=== PATIENT | male | born 1985 | race Hispanic/Latino ===

== ENCOUNTER 2017-11-11 13:19 | Emergency (ER) | payer SELFPAY ==
--- NOTE | 2017-11-11 13:59 | RAD ---
LEFT ELBOW FOUR VIEWS: HISTORY: A 32-year-old male with a history of left elbow pain following trauma four days ago. FINDINGS: There is evidence for an elbow joint effusion. There appears to be some cortical irregularity of the sublime tubercle region of the ulna, concerning for the possibility of a fracture. IMPRESSION: Evidence for elbow joint effusion with a possible fracture of the sublime tubercle region of the ulna . Given persistent pain and joint effusion after trauma, consideration for additional imaging with M [facility] would be of benefit for further assessment, to evaluate for any additional nonosseous injury. POS: [facility]
[2017-11-11] MEDS ORDERED: Ketorolac Tromethamine 30 MG/ML VIAL ONE (14:42)
== END 2017-11-11 15:13 | disposition home or self-care (01) ==
LOC: ERS 13:19
DX: S52.025A Nondisplaced fracture of olecranon process without intraarticular extension of left ulna, initial encounter for closed fracture (principal); S42.412A Displaced simple supracondylar fracture without intercondylar fracture of left humerus, initial encounter for closed fracture; W22.8XXA Striking against or struck by other objects, initial encounter
CPT/HCPCS: 24530; 24670; 96372; J1885

== ENCOUNTER 2018-08-10 21:29 | Emergency (ER) | payer SELFPAY | END 2018-08-11 00:07 | disposition left against medical advice (07) | LOC: ERS 21:29 | DX: Z53.21 Procedure and treatment not carried out due to patient leaving prior to being seen by health care provider (principal) ==

== ENCOUNTER 2018-08-18 18:38 | Emergency (ER) | payer SELFPAY ==
--- NOTE | 2018-08-18 19:17 | RAD ---
EXAM: Chest one view: HISTORY: Cough for one and a half weeks COMPARISON: None FINDINGS: Heart size: Within normal limits. The lungs: Clear of acute process. No evidence for pneumonia, pleural effusion, acute edema, or pneumothorax, or other significant acute process. IMPRESSION: No significant acute intrathoracic disease.
[2018-08-18] MEDS ORDERED: Lidocaine 1% PF 5 ML VIAL ONE (19:18)
[2018-08-18] MEDS ORDERED: cefTRIAXone\\ROCEPHIN 1 GM VIAL ONE (19:18)
[2018-08-18] MEDS ORDERED: Dexamethasone 10 MG/ML VIAL ONE (19:19)
== END 2018-08-18 19:59 ==
LOC: ERS 18:38
DX: J20.9 Acute bronchitis, unspecified (principal)
CPT/HCPCS: 71045; 96372; J0696; J1100; J2001

== ENCOUNTER 2019-03-10 20:39 | Emergency (ER) | payer SELFPAY | END 2019-03-10 21:18 | disposition home or self-care (01) | LOC: ERS 20:39 | DX: G43.909 Migraine, unspecified, not intractable, without status migrainosus (principal) | CPT/HCPCS: 99283 ==

== ENCOUNTER 2021-12-19 03:41 | Emergency (ER) | payer SELFPAY ==
[2021-12-19] MEDS ORDERED: Mag-Al 1200 mg/1200 mg/30 ML UDCUP ONE (03:58)
[2021-12-19] MEDS ORDERED: Lidocaine Viscous Sol 2% 15 ml UD Cup ONE (03:58)
[2021-12-19] MEDS ORDERED: Ondansetron ODT 4 MG TAB ONE (03:58)
[2021-12-19 04:47] LABS: #Eosinphils 0.3 thou/uL (0.0-0.7); #Monocytes 0.5 thou/uL (0.11-0.59); #Neutrophils 4.3 thou/uL (1.40-6.50); %Basophils 0.4 % (0.0-1.0); %Eosinophils 3.1 % (0.0-10.0); %Lymphocytes 36.7 % (21.0-51.0); %Monocytes 5.9 % (0.0-10.0); %Neutrophils 53.9 % (42.0-75.0); Hemoglobin 13.7 g/dL (14.0-18.0); Mean Corpuscular HGB CONC 33.2 g/dL (32.0-36.0); Mean Corpuscular Hemoglobin 29.6 pg (27.0-31.0); Mean Corpuscular Volume 89.2 fL (78.0-98.0); Platelet Count 274 thou/uL (130-400); RBC Distribution Width 12.3 % (11.5-14.5); Red Blood Cell (RBC) Count 4.64 mill/uL (4.70-6.10); White Blood Cell (WBC) Count 8.1 thou/uL (4.8-10.8)
[2021-12-19 05:05] LABS: Anion Gap 14 mmol/L (10-20); BUN (Urea Nitrogen) 20 mg/dL (8.9-20.6); Calc. Creatinine Clearance 0 mL/min (70-130); Calcium 9.7 mg/dL (7.8-10.44); Carbon Dioxide 25 mmol/L (22-29); Chloride 104 mmol/L (98-107); Estimated GFR 111; Glucose 131 mg/dL (70-105); Lipase 34 U/L (8-78); Potassium 3.6 mmol/L (3.5-5.1); Sodium 139 mmol/L (136-145)
[2021-12-19 05:06] LABS: ALT (SGPT) 30 U/L (8-55); AST (SGOT) 19 U/L (5-34); Albumin 4.3 g/dL (3.5-5.0); Alkaline Phosphatase 77 U/L (40-110); Bilirubin, Direct 0.2 mg/dL (0.1-0.3); Bilirubin, Total 0.8 mg/dL (0.2-1.2); Protein, Total 7.2 g/dL (6.0-8.3)
[2021-12-19 05:27] LABS: Bilirubin Negative (Negative); Blood, Urine Negative (Negative); Clarity Clear (Clear); Glucose, Urine (Dipstick) Normal (Negative); Ketone, Urine Negative (Negative); Leukocyte Negative Leu/uL (Negative); Nitrite Negative (Negative); Protein, Urine (Dipstick) Negative (Neg-Trace); Specific Gravity, Urine 1.022 (1.002-1.036); Urobilinogen Normal mg/dL (Less than 2)
[2021-12-19] MEDS ORDERED: Dicyclomine 20 MG/2 ML VIAL ONE (05:51)
== END 2021-12-19 07:36 | disposition home or self-care (01) ==
LOC: ERS 03:41
DX: K80.20 Calculus of gallbladder without cholecystitis without obstruction (principal)
CPT/HCPCS: 36415; 76705; 80048; 80076; 81003; 83690; 85025; 96372; Q0162

== ENCOUNTER 2022-06-01 02:34 | Emergency (ER) | payer SELFPAY ==
[2022-06-01 03:07] LABS: Bilirubin Negative (Negative); Blood, Urine Negative (Negative); Clarity Turbid (Clear); Glucose, Urine (Dipstick) Normal (Negative); Ketone, Urine Negative (Negative); Leukocyte Negative Leu/uL (Negative); Nitrite Negative (Negative); Protein, Urine (Dipstick) Negative (Neg-Trace); Urobilinogen Normal mg/dL (Less than 2)
== END 2022-06-01 03:12 | disposition left against medical advice (07) ==
LOC: ERS 02:34
DX: Z53.21 Procedure and treatment not carried out due to patient leaving prior to being seen by health care provider (principal)
CPT/HCPCS: 81003